=== PATIENT | female | born 1955 | race Caucasian/White ===

== ENCOUNTER → 2023-08-22 08:45 | Outpatient (REF) | payer MEDICARE, SELFPAY | LOC: HWRAD 08:45 | PROVIDERS: ATTENDING PHYSICIAN Obstetrics & Gynecology Gynecology; FAMILY PHYSICIAN Family Medicine | DX: N95.0 Postmenopausal bleeding (principal) | CPT/HCPCS: 76830; 76856 ==

== ENCOUNTER → 2023-08-24 13:24 | Outpatient (REF) | payer MEDICARE, SELFPAY | LOC: WDC 13:24 | PROVIDERS: ATTENDING PHYSICIAN Obstetrics & Gynecology Gynecology; FAMILY PHYSICIAN Family Medicine | DX: Z12.31 Encounter for screening mammogram for malignant neoplasm of breast (principal); R92.8 Other abnormal and inconclusive findings on diagnostic imaging of breast | CPT/HCPCS: 76642; 77063; 77067 ==

== ENCOUNTER → 2023-09-13 07:02 | Outpatient (REF) | payer MEDICARE, SELFPAY ==
[2023-09-13 09:08] LABS: % Basophils 1.3 % (0-2); % Eosinophils 1.6 % (0-6); % Immature Granulocytes 0.3 % (0-0.5); % Lymphocytes 22.1 % (20.5-51.1); % Monocytes 9.4 % (1.7-9.3); % Neutrophils 65.3 % (42.2-75.2); Absolute Basophils 0.1 10^3/uL (0-0.2); Absolute Eosinophils 0.1 10^3/uL (0-0.7); Absolute Lymphocytes 1.4 10^3/uL (1.2-3.4); Absolute Monocytes 0.6 10^3/uL (0.1-0.6); Hematocrit 38.4 % (37.0-47.0); Hemoglobin 12.9 g/dL (12.0-16.0); Mean Corp Hgb Conc. 33.6 g/dL (33.0-37.0); Mean Corpuscular Hgb 30.7 pg (27.0-31.0); Mean Corpuscular Volume 91.4 fL (81.0-99.0); Mean Platelet Volume 11.2 fL (7.4-10.4); Nucleated Red Blood Cells % 0 %; Platelet Count 271 10^3/uL (130-400); Red Cell Dist. Width 15.3 % (11.5-14.5); White Blood Cell Count 6.2 10^3/uL (4.8-10.8)
[2023-09-13 09:53] LABS: Blood Urea Nitrogen 15 mg/dl (7-17); Calcium 9.7 mg/dl (8.4-10.2); Carbon Dioxide 22 mmol/L (22-30); Chloride 99 mmol/L (98-107); Glucose 91 mg/dl (70-99); Potassium 4.5 mmol/L (3.5-5.1); Sodium 133 mmol/L (135-145); eGFR > 60.00
== END ==
LOC: SDSPAT 07:02
PROVIDERS: ATTENDING PHYSICIAN Student in an Organized Health Care Education/Training Program; FAMILY PHYSICIAN Family Medicine; OTHER PHYSICIAN Internal Medicine Cardiovascular Disease
DX: Z01.818 Encounter for other preprocedural examination (principal)
CPT/HCPCS: 36415; 80048; 85025; 93005

== ENCOUNTER → 2023-09-22 07:01 | Outpatient (REF) | payer MEDICARE, SELFPAY | LOC: HWRCS 07:01 | PROVIDERS: ATTENDING PHYSICIAN Family Medicine | DX: R01.1 Cardiac murmur, unspecified (principal) | CPT/HCPCS: 93306 ==

== ENCOUNTER 2023-09-27 06:30 | Day surgery (SDC) | payer MEDICARE, SELFPAY ==
[2023-09-13 07:17] VITALS: BMI 26.6
[2023-09-27 13:07] VITALS: BP 160/105
[2023-09-27] MEDS: TYLENOL 1000 MG PO (13:10)
[2023-09-27] MEDS: NORMOSOL-R 1000 IV (13:11)
[2023-09-27] MEDS: CELEBREX 200 MG PO (13:11)
[2023-09-27 13:12] VITALS: BMI 26.6
[2023-09-27 16:30] VITALS: BP 131/66
[2023-09-27 16:46] VITALS: BP 159/88
[2023-09-27 17:00] VITALS: BP 143/102
== END 2023-09-27 17:30 | disposition home or self-care (01) ==
LOC: SDS 06:30
PROVIDERS: ATTENDING PHYSICIAN Student in an Organized Health Care Education/Training Program
DX: M20.21 Hallux rigidus, right foot (principal)
CPT/HCPCS: 28750; C1713

== ENCOUNTER → 2024-03-21 07:19 | Outpatient (REF) | payer MEDICARE, SELFPAY ==
[2024-03-21 10:34] LABS: % Eosinophils 2.6 % (0-6); % Immature Granulocytes 0.2 % (0-0.5); % Lymphocytes 20.8 % (20.5-51.1); % Monocytes 11.6 % (1.7-9.3); % Neutrophils 63.8 % (42.2-75.2); Absolute Basophils 0.1 10^3/uL (0-0.2); Absolute Eosinophils 0.2 10^3/uL (0-0.7); Absolute Lymphocytes 1.3 10^3/uL (1.2-3.4); Absolute Monocytes 0.7 10^3/uL (0.1-0.6); Absolute Neutrophils 3.9 10^3/uL (1.4-6.5); Hematocrit 36.2 % (37.0-47.0); Hemoglobin 12.4 g/dL (12.0-16.0); Mean Corp Hgb Conc. 34.3 g/dL (33.0-37.0); Mean Corpuscular Hgb 29.9 pg (27.0-31.0); Mean Corpuscular Volume 87.2 fL (81.0-99.0); Nucleated Red Blood Cells % 0 %; Platelet Count 181 10^3/uL (130-400); Red Blood Cell Count 4.15 10^6/uL (4.20-5.40); Red Cell Dist. Width 16.2 % (11.5-14.5); White Blood Cell Count 6.1 10^3/uL (4.8-10.8)
[2024-03-21 11:07] LABS: Blood Urea Nitrogen 11 mg/dl (7-17); Calcium 9.1 mg/dl (8.4-10.2); Carbon Dioxide 21 mmol/L (22-30); Chloride 101 mmol/L (98-107); Glucose 89 mg/dl (70-99); Potassium 4.6 mmol/L (3.5-5.1); Sodium 136 mmol/L (135-145); eGFR > 60.00
== END ==
LOC: SDSPAT 07:19
PROVIDERS: ATTENDING PHYSICIAN Student in an Organized Health Care Education/Training Program; FAMILY PHYSICIAN Family Medicine
DX: Z01.818 Encounter for other preprocedural examination (principal)
CPT/HCPCS: 80048; 85025; 93005

== ENCOUNTER 2024-04-01 06:18 | Day surgery (SDC) | payer MEDICARE, SELFPAY ==
[2024-03-21 08:00] VITALS: BMI 26.0
[2024-04-01] VITALS (11 sets, daily range): BP systolic 131–171; BP diastolic 78–97; BMI 26.0
[2024-04-01] MEDS: TYLENOL 1000 MG PO (09:46)
[2024-04-01] MEDS: CELEBREX 200 MG PO (09:46)
[2024-04-01] MEDS: NORMOSOL-R/PLASMALYTE-A 1000 IV (09:47)
[2024-04-01] MEDS: ROXICODONE 5 MG PO (15:20)
== END 2024-04-01 16:05 | disposition home or self-care (01) ==
LOC: SDS 06:18
PROVIDERS: ATTENDING PHYSICIAN Student in an Organized Health Care Education/Training Program
DX: M20.22 Hallux rigidus, left foot (principal)
CPT/HCPCS: 28750; C1713; C1776

== ENCOUNTER → 2024-10-14 09:40 | Outpatient (REF) | payer MEDICARE, SELFPAY | LOC: HWWDC 09:40 | PROVIDERS: ATTENDING PHYSICIAN Family Medicine; REFERRING PHYSICIAN Obstetrics & Gynecology Gynecology | DX: Z12.31 Encounter for screening mammogram for malignant neoplasm of breast (principal) | CPT/HCPCS: 77063; 77067 ==

== ENCOUNTER → 2025-03-14 10:37 | Outpatient (REF) | payer MEDICARE, SELFPAY | LOC: HWRAD 10:37 | PROVIDERS: ATTENDING PHYSICIAN Family Medicine | DX: M25.551 Pain in right hip (principal) | CPT/HCPCS: 72110; 73502 ==

== ENCOUNTER → 2025-04-07 11:17 | Outpatient (REF) | payer MEDICARE, SELFPAY ==
[2025-04-07 12:11] LABS: Hematocrit 40.8 % (37.0-47.0); Hemoglobin 13.4 g/dL (12.0-16.0); Mean Corp Hgb Conc. 32.8 g/dL (33.0-37.0); Mean Corpuscular Volume 92.5 fL (81.0-99.0); Nucleated Red Blood Cells % 0 %; Platelet Count 281 10^3/uL (130-400); Red Cell Dist. Width 14.0 % (11.5-14.5)
== END ==
LOC: REG 11:17
PROVIDERS: ATTENDING PHYSICIAN Family Medicine
DX: D58.2 Other hemoglobinopathies (principal)
CPT/HCPCS: 36415; 82668; 85025